=== PATIENT | male | born 1995 | race Asian ===

== ENCOUNTER 2017-08-31 10:55 | Emergency (ER) | payer OTHER ==
[2017-08-31] MEDS: TETRACAINE 0.5% OPHTH SOLN 4ML OU (11:25)
[2017-08-31] MEDS: FLUORESCEIN OPHTH 1 MG STRIP OU (11:25)
== END 2017-08-31 12:40 | disposition home or self-care (01) ==
LOC: M ED 10:55
DX: S05.02XA Injury of conjunctiva and corneal abrasion without foreign body, left eye, initial encounter (principal); X58.XXXA Exposure to other specified factors, initial encounter; Y92.9 Unspecified place or not applicable; Y93.9 Activity, unspecified; Y99.0 Civilian activity done for income or pay
CPT/HCPCS: 99284